=== PATIENT | male | born 1985 | race Caucasian/White ===

== ENCOUNTER 2021-11-03 08:44 | Emergency (ER) | payer OTHER, SELFPAY ==
[2021-11-03] VITALS (7 sets, daily range): BP systolic 138–164; BP diastolic 97–102; PULSE 97–130; RESP 12–19; TEMP 36.6–37.4; O2SAT 92–96; BMI 26.4
--- NOTE | 2021-11-03 09:03 | RAD_ITS ---
STUDY: X-RAY CHEST REASON FOR EXAM: Male, 35 years old. Dyspnea TECHNIQUE: Single AP portable view of the chest. COMPARISON: None. FINDINGS: EKG electrodes are seen. Mild elevation of the right hemidiaphragm with increased markings at the right lung base suggestive of either atelectasis and/or early infiltrate. There is no demonstrated pleural abnormality. Normal size heart. Normal mediastinum and henok. Normal visualized pulmonary arteries. Normal visualized aortic arch and descending thoracic aorta. Normal visualized thoracic spine. Normal visualized ribs, clavicles, and shoulders. There is no demonstrated abnormality of the visualized soft tissue structures of the upper abdomen. RAD/Chest 1 View (Portable) IMPRESSION: Mild elevation of the right hemidiaphragm with increased markings at the right lung base suggestive of either atelectasis and/or early infiltrate. Electronically Signed: Sonido Amaya MD at 9:44 EDT ,
--- NOTE | 2021-11-03 09:03 | EKG12_ITS ---
Test Reason : NAUSEA/VOMITING Blood Pressure : / mmHG Vent. Rate : 091 BPM Atrial Rate : 091 BPM P-R Int : 144 ms QRS Dur : 100 ms QT Int : 360 ms P-R-T Axes : 025 056 001 degrees QTc Int : 442 ms Normal sinus rhythm Nonspecific T wave abnormality Abnormal ECG Confirmed by MARY JOY, JOVANNI ([id number]), greeting card editor THEODORA PAULA ([id number]) on 11/07/2021 10:59:44 AM Referred By: YADIRA Confirmed By:JOVANNI HERNANDEZ MD
--- NOTE | 2021-11-03 09:04 | EDS_ITS ---
HPI HPI - GI History of Present Illness Chief Complaint: Nausea/Vomiting Narrative Narrative: 35-year-old male presenting with nausea/vomiting for 3 days. Has not been able to hold down any food or fluids. He states that he started feeling nauseous at dinner prior to this. He did not eat anything exotic that he knows of. He has no known sick contacts. He is not having abdominal pain. He feels like his throat is burning however. Patient states that he is not having chest pain and states that he is not short of breath more than usual. Patient has had some respiratory issues since having and July. He is on Symbicort and Singulair. Patient has not had a fever. [facility] Medical History COVID-19 Home Medications Ibuprofen [Motrin] 800 mg PO DAILY 02/24/17 [History Last Taken Unknown] amoxicillin-pot clavulanate 1 tab PO BID #20 tab 11/03/21 [Rx Last Taken Unknown] budesonide-formoterol [Symbicort] 2 puff INHALATION BID 11/03/21 [History Last Taken Unknown] cetirizine [Zyrtec] 10 mg PO DAILY 11/03/21 [History Last Taken Unknown] lidocaine HCl [Lidocaine Viscous] 5 ml MUCOUS MEMBRANE TID PRN #100 ml 11/03/21 [Rx Last Taken Unknown] montelukast [Singulair] 10 mg PO QHS 11/03/21 [History Last Taken Unknown] ondansetron 4 mg PO Q8H PRN #14 tab 11/03/21 [Rx Last Taken Unknown] promethazine 25 mg PO TID PRN #20 tab 11/03/21 [Rx Last Taken Unknown] Allergy/AdvReac Type Severity Reaction Status Date / Time acetaminophen Allergy Swelling Verified 11/03/21 08:44 [From Darvocet-N] propoxyphene napsylate Allergy Swelling Verified 11/03/21 08:44 [From Darvocet-N] Surgical History Hx of hernia repair Social History Smoking Status: Current every day smoker tobacco type: cigarettes ROS ROS ED Constitutional Constitutional ED: Denies chills or fever(s) ENT ENT ED: Reports sore throat; Denies rhinorrhea Cardiovascular Cardiovascular: Denies chest pain or palpitations Respiratory/Chest Respiratory/Chest: Denies cough or dyspnea Gastrointestinal Gastrointestinal: Reports nausea and vomiting; Denies abdominal pain Genitourinary Genitourinary ED: Denies dysuria or hematuria Musculoskeletal Musculoskeletal: Denies arthralgias or myalgias Integumentary Denies rash Neurologic Neurologic: Denies headache(s) or paresthesias Psychiatric Psychiatric: Denies anxiety or depression EXAM Physical Exam Const Vital Signs: 11/03/21 08:45 11/03/21 09:11 11/03/21 09:14 Temperature 97.8 F 98.5 F Temperature Source Temporal Oral Pulse Rate 130 H 97 Respiratory Rate 17 16 Blood Pressure 138/99 H 156/102 H Blood Pressure Mean 112 120 Pulse Ox 93 96 Oxygen Delivery Method Room Air Room Air Room Air 11/03/21 10:39 11/03/21 11:58 Temperature 97.8 F 99.3 F H Temperature Source Oral Oral Pulse Rate 115 H 104 H Respiratory Rate 19 H 12 Blood Pressure 164/97 H 152/99 H Blood Pressure Mean 119 116 Pulse Ox 95 93 Oxygen Delivery Method Room Air Room Air Positive well nourished General Appearance ED: NAD; Negative for pallor HEENT Reports dry mucous membranes normocephalic and atraumatic Mouth ED: Yes dry mucous membranes Mouth: dry mucous membranes Eyes PERRL and EOMs intact bilaterally General Eye ED: Negative for pale conjunctiva or scleral icterus Resp normal respiratory effort and clear to auscultation bilaterally Cardio regular rhythm Rate: tachycardic GI non-tender and non-distended Palpation: soft Extremity full ROM General Extremety ED: Negative for edema General Extremity: Negative for edema Neuro CN's II-XII intact bilaterally, moves all extremities and no sensory deficits noted Sensorium / Orientation: alert, oriented to person, oriented to place and oriented to time Motor Exam: strength 5/5 throughout Psych mental status grossly normal and thought process normal Skin General Skin Exam: Negative for jaundice or pallor MDM MDM MDM Narrative Medical decision making narrative: 35-year-old male presenting with nausea, vomiting for 3 days. He reports that he has not held any food or fluids. He is tachycardic at 130 bpm and has a pulse ox of 93%. Sepsis work-up was initiated. EKG on my interpretation shows a normal sinus rhythm with a ventricular rate of [address] elevation or depression. Chest x-ray my interpretation looks like a early infiltrate in the right lower lobe. The radiologist does agree. Patient is not complaining of any shortness of breath, cough, fever, chest pain. He does not have abdominal pain or diarrhea. Given that the patient could have possibly aspirated he is given Augmentin and he was able to tolerate this after getting 2 L of IV fluids and Zofran with Phenergan. He feels improved. CBC shows a leukocytosis of 15.4. Hemoglobin hematocrit are stable. PT/INR normal. Creatinine is 1.06, sodium 139, potassium 3.2. Glucose is 135. LFTs are normal. Lactic acid within normal limits. Urinalysis is negative for infection. High-sensitivity troponin is 8. The patient feels improved and wants to be discharged home. His pulse ox is slightly low at 93. His heart rate is improved to 104. I will write him a prescription for Augmentin as well as Zofran, Phenergan, viscous lidocaine that he can use for his sore throat. Patient is also given an incentive spirometer. I discussed with him at length return precautions. He acknowledged understanding. Impression: 1. Gastroenteritis 2. Leukocytosis 3. Dehydration 4. Right lower lobe pneumonia Lab Data Labs: Laboratory Results - last 24 hr 11/03/21 11/03/21 11/03/21 09:15 09:15 09:15 WBC 15.4 H RBC 5.65 Hgb 17.0 H Hct 48.4 MCV 85.7 MCH 30.1 MCHC 35.1 RDW Std Deviation 41.1 RDW Coeff of Arun 13.3 Plt Count 285 MPV 8.9 Immature Gran % (Auto) 0.500 Neut % (Auto) 79.3 H Lymph % (Auto) 11.5 L [place] % (Auto) 8.6 Eos % (Auto) 0.0 Baso % (Auto) 0.1 Absolute Neuts (auto) 12.2 H Absolute Lymphs (auto) 1.77 Nucleated RBC % 0 PT 12.9 INR 1.0 APTT 38.0 H Sodium 139 Potassium 3.2 L Chloride 106 Carbon Dioxide 27.0 Anion Gap 6 BUN 15 Creatinine 1.06 Estim Creat Clear Calc 110.94 Est GFR (MDRD) Af Amer 101 Est GFR (MDRD) Non-Af 83 BUN/Creatinine Ratio 14.2 Glucose 135 H Lactic Acid Calcium 9.0 Total Bilirubin 1.00 AST 13 L ALT 29 Alkaline Phosphatase 64 Troponin I High Sens 8 Total Protein 7.5 Albumin 4.0 Globulin 3.5 Albumin/Globulin Ratio 1.1 Urine Color Urine Clarity Urine pH Ur Specific Boyce Urine Protein Urine Glucose (UA) Urine Ketones Urine Occult Blood Urine Nitrite Urine Bilirubin Urine Urobilinogen Ur Leukocyte Esterase Urine RBC Urine WBC Ur Squamous Epith Cells Urine Bacteria Urine Mucus 11/03/21 11/03/21 09:15 11:40 WBC RBC Hgb Hct MCV MCH MCHC RDW Std Deviation RDW Coeff of Arun Plt Count MPV Immature Gran % (Auto) Neut % (Auto) Lymph % (Auto) [place] % (Auto) Eos % (Auto) Baso % (Auto) Absolute Neuts (auto) Absolute Lymphs (auto) Nucleated RBC % PT INR APTT Sodium Potassium Chloride Carbon Dioxide Anion Gap BUN Creatinine Estim Creat Clear Calc Est GFR (MDRD) Af Amer Est GFR (MDRD) Non-Af BUN/Creatinine Ratio Glucose Lactic Acid 1.1 Calcium Total Bilirubin AST ALT Alkaline Phosphatase Troponin I High Sens Total Protein Albumin Globulin Albumin/Globulin Ratio Urine Color Yellow Urine Clarity Clear Urine pH 7.0 Ur Specific Boyce 1.010 Urine Protein 15 H Urine Glucose (UA) Normal Urine Ketones Negative Urine Occult Blood 10 H Urine Nitrite Negative Urine Bilirubin Negative Urine Urobilinogen Normal Ur Leukocyte Esterase Negative Urine RBC 0-5 SEEN Urine WBC 0 SEEN Ur Squamous Epith Cells 0 SEEN Urine Bacteria 1+ Urine Mucus 0 SEEN Radiography Diagnostic Testing: Clinical Impression(s) from Imaging Studies Chest X-Ray 11/03/21 09:03 IMPRESSION: Mild elevation of the right hemidiaphragm with increased markings at the right lung base suggestive of either atelectasis and/or early infiltrate. Electronically Signed: Sonido Amaya MD at 9:44 EDT , Discharge Plan Triage Chief Complaint: Nausea/Vomiting ED Provider: Vasu Albert Dx/Rx/DC Orders Instructions: ED Pneumonia (Adult), ED Gastroenteritis, Viral (Adult) Prescriptions: New ondansetron 4 mg tablet,disintegrating 4 mg PO Q8H PRN (Reason: nausea and vomiting) Qty: 14 RF: 0 promethazine 25 mg tablet 25 mg PO TID PRN (Reason: nausea and vomiting) Qty: 20 RF: 0 lidocaine HCl [Lidocaine Viscous] 2 % solution 5 ml mucous membrane TID PRN (Reason: pain) Qty: 100 RF: 0 amoxicillin-pot clavulanate 875-125 mg tablet 1 tab PO BID Qty: 20 RF: 0 No Action Ibuprofen [Motrin] 800 MG tablet 800 mg PO DAILY RF: 0 cetirizine [Zyrtec] 10 mg Tablet 10 mg PO DAILY RF: 0 montelukast [Singulair] 10 mg Tablet 10 mg PO QHS RF: 0 budesonide-formoterol [Symbicort] 80-4.5 mcg/actuation Hfa Aerosol Inhaler 2 puff INHALATION BID RF: 0 Primary Care Provider: Care Physician,No Primary Referrals: Opal Alvarado MD [STAFF PHYSICIAN] - 3-5 Days Care Physician,No Primary [Primary Care Provider] - Disposition Disposition: Home, Self Care
[2021-11-03] MEDS: 0.9% Normal Saline 1,000 ML 999 ML IV ×2 (09:09→10:30)
[2021-11-03] MEDS: Ondansetron 4 MG/2 ML Vial IV (09:10)
[2021-11-03 09:24] LABS: Absolute Lymphocyte Count 1.77 X10^3/uL (0.83-4.51); Absolute Neutrophil Count 12.2 X10^3/uL (2.0-7.7); Basophil# 0.02 X10^3/uL; Basophil% 0.1 % (0-1); Hematocrit 48.4 % (40-54); Lymphocyte # 1.77 X10^3/ul (0.83-4.51); Lymphocyte % 11.5 % (19-41); Mean Corp Hgb Conc 35.1 g/dL (32-36); Mean Corpuscular Hgb 30.1 pg (27.0-32.0); Mean Corpuscular Volume 85.7 fL (80-94); Mean Platelet Vol. 8.9 fl (6.2-12.0); Monocyte# 1.33 X10^3/uL; Monocyte% 8.6 % (0-10); NRBC Flagged by Analyzer 0 % (0-5); Neutrophil # 12.21 X10^3/uL (2.7-7.7); Neutrophil % 79.3 % (47-70); Platelet Count 285 K/mm3 (150-450); RBC Distribution Width CV 13.3 % (11.6-14.6); RBC Distribution Width SD 41.1 fl (35.1-43.9); Red Blood Count 5.65 M/mm3 (4.6-6.2); White Blood Count 15.4 K/mm3 (4.4-11.0)
[2021-11-03 09:43] LABS: ALB/GLOB Ratio 1.1 RATIO (0.9-2.4); AST(SGOT) 13 U/L (15-37); Alanine Aminotransfer ALT/SGPT 29 U/L (16-61); Alkaline Phosphatase 64 U/L (45-117); Anion Gap 6 (5-15); BUN 15 mg/dL (7-18); BUN/Creat Ratio 14.2 RATIO (10-20); Chloride 106 mmol/L (98-107); Creatinine, Serum 1.06 mg/dL (0.70-1.30); EST Glomerular Filtration Rate 83 mL/min (>60); Est Glom Filt Rate - Afr Amer 101 mL/min (>60); Estimated Creatinine Clearance 110.94 ml/min; Globulin 3.5 g/dL (2.2-4.2); Glucose 135 mg/dL (74-106); Potassium 3.2 mmol/L (3.5-5.1); Protein, Total 7.5 g/dL (6.4-8.2); Sodium Level 139 mmol/L (136-145); Troponin-I HS 8 pg/mL (3.0-78.0)
[2021-11-03 09:46] LABS: Prothrombin Time (Protime)PT. 12.9 SECONDS (11.7-14.9)
[2021-11-03 10:07] LABS: Lactic Acid 1.1 mmol/L (0.4-1.9)
[2021-11-03] MEDS: proMETHazine 25 MG/ML Syringe 12.5 MG IM (10:37)
[2021-11-03 11:46] LABS: Mucous, Urine 0 SEEN /hpf (<or=2+); Squamous Epithelial Cells - UA 0 SEEN /hpf (0-5); White Blood Cells 0 SEEN /hpf (0-5)
[2021-11-03] MEDS: Amox/Clavulanate 875 MG Tablet PO (11:57)
[2021-11-03 12:03] LABS: Color, Urine Yellow (Yellow); Glucose, Dipstick Normal (Normal); Ketone-Dipstick Negative (Negative); Leukocyte Esterase-Dipstick Negative /ul (Negative); Nitrite-Dipstick Negative (Negative); Occult Blood-Urine 10 /ul (Negative); Protein-Dipstick 15 mg/dl (Negative); Urine Bilirubin Dipstick Negative (Negative); Urine Clarity Clear (Clear); Urine Urobilinogen Normal (Normal)
[2021-11-03 12:12] LABS: Bacteria 1+ /hpf (None Seen); Red Blood Cells-Urine 0-5 SEEN /hpf (0-5)
[2021-11-03] MEDS: BENZOCAINE/MENTHOL 1 LOZENGE MUCOUS MEM (12:17)
== END 2021-11-03 13:45 | disposition home or self-care (01) ==
PROVIDERS: Emergency Provider Student in an Organized Health Care Education/Training Program; Visit Provider Student in an Organized Health Care Education/Training Program
DX: J18.9 Pneumonia, unspecified organism (principal); K52.9 Noninfective gastroenteritis and colitis, unspecified; E86.0 Dehydration; D72.829 Elevated white blood cell count, unspecified; F17.210 Nicotine dependence, cigarettes, uncomplicated; Z86.16 Personal history of COVID-19; Z79.899 Other long term (current) drug therapy
CPT/HCPCS: 36415; 71045; 80053; 81001; 83605; 84484; 85025; 85610; 85730; 87040; 87086; 87088; 93005; 96361; 96372; 96374; 99285; J7030; A4216; J2405

== ENCOUNTER → 2023-04-12 | Outpatient (CLI) | payer OTHER, SELFPAY ==
--- NOTE | 2023-04-12 11:17 | RAD_ITS ---
HISTORY: Worsening cough. TECHNIQUE: XR Chest 2 Views. COMPARISON: 11/03/2021. FINDINGS: CARDIOMEDIASTINAL BORDERS: Cardiac silhouette within normal limits in size. Mediastinal contour unremarkable. LUNGS: Radiographically clear. Chronic elevation of the right hemidiaphragm PLEURA: No pleural effusion or pneumothorax seen. OSSEOUS STRUCTURES: Unremarkable. RAD/Chest PA and Lateral IMPRESSION: No acute cardiopulmonary process identified. Electronically Signed: Liv Person MD at 12:35 EDT ,
== END | disposition home or self-care (01) ==
LOC: MTRAD 11:16
PROVIDERS: Referring Provider Physician Assistant Surgical; Visit Provider Physician Assistant Surgical
DX: J20.9 Acute bronchitis, unspecified (principal)
CPT/HCPCS: 71046

== ENCOUNTER → 2023-05-01 | Outpatient (CLI) | payer OTHER, SELFPAY ==
[2023-05-01 17:38] LABS: Absolute Lymphocyte Count 2.54 X10^3/uL (0.83-4.51); Basophil# 0.04 X10^3/uL; Basophil% 0.5 % (0-1); Eosinophil# 0.46 X10^3/uL; Eosinophils% 5.4 % (0-5); Hematocrit 43.5 % (40-54); Lymphocyte # 2.54 X10^3/ul (0.83-4.51); Lymphocyte % 29.9 % (19-41); Mean Corp Hgb Conc 34.5 g/dL (32-36); Mean Corpuscular Hgb 30.4 pg (27.0-32.0); Mean Corpuscular Volume 88.2 fL (80-94); Mean Platelet Vol. 9.8 fl (6.2-12.0); Monocyte# 0.48 X10^3/uL; Monocyte% 5.7 % (0-10); NRBC Flagged by Analyzer 0 % (0-5); Neutrophil # 4.96 X10^3/uL (2.7-7.7); Neutrophil % 58.4 % (47-70); Platelet Count 237 K/mm3 (150-450); RBC Distribution Width CV 12.9 % (11.6-14.6); RBC Distribution Width SD 41.7 fl (35.1-43.9); Red Blood Count 4.93 M/mm3 (4.6-6.2); White Blood Count 8.5 K/mm3 (4.4-11.0)
[2023-05-01 18:21] LABS: ALB/GLOB Ratio 1.2 RATIO (0.9-2.4); AST(SGOT) 14 U/L (15-37); Alanine Aminotransfer ALT/SGPT 31 U/L (16-61); Albumin, Serum 3.5 g/dL (3.2-5.0); Alkaline Phosphatase 61 U/L (45-117); Anion Gap 3 (5-15); BUN 9 mg/dL (7-18); BUN/Creat Ratio 7.7 RATIO (10-20); Calcium,Total 8.6 mg/dL (8.5-10.1); Chloride 111 mmol/L (98-107); Cholesterol 194 mg/dL (200); Creatinine, Serum 1.17 mg/dL (0.70-1.30); EST Glomerular Filtration Rate 74 mL/min (>60); Est Glom Filt Rate - Afr Amer 89 mL/min (>60); Glucose 97 mg/dL (74-106); High Density Lipoprotein 38 mg/dL; Potassium 3.9 mmol/L (3.5-5.1); Protein, Total 6.5 g/dL (6.4-8.2); Sodium Level 142 mmol/L (136-145); Triglycerides 451 mg/dL
== END | disposition home or self-care (01) ==
LOC: MFPLAB 14:36
PROVIDERS: PCP Family Medicine; Visit Provider Family Medicine
DX: R53.83 Other fatigue (principal)
CPT/HCPCS: 36415; 80053; 80061; 84443; 85025